=== PATIENT | male | born 1965 | race Caucasian/White ===

== ENCOUNTER 2017-01-10 17:45 | Emergency (ER) | payer BC ==
--- NOTE | 2017-01-10 19:44 | ER Document Report ---
ED Skin Rash/Insect Bite/Abscs - General Chief Complaint: Skin Problem Stated Complaint: CALF PAIN Time Seen by Provider: 01/10/17 18:21 Mode of Arrival: Ambulatory Information source: Patient Notes: A 51-year-old male presents to ED for red warm back of right calf for 1-2 weeks. He states he went to his primary doctor today and she was going to do an ultrasound instead sent her to the emergency room. He states that he took one bare aspirin 325 last night and one this morning. 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 He has a past history of rheumatic fever ADHD and a clavicle fracture. - HPI Patient complains to provider of: Other - Red tender right calf for 1-2 weeks Onset: Other - 1-2 weeks Onset/Duration: Gradual Quality of pain: Burning Severity: Mild Pain Level: 1 Skin Character: Other - Red swollen tender Skin Temperature: Warm Quality of rash: Painful Identify cause: No Exacerbated by: Movement, Walking Relieved by: Denies Similar symptoms previously: No Recently seen / treated by doctor: Yes - Related Data Allergies/Adverse Reactions: No Known Allergies Allergy (Unverified 01/10/17 17:51) Home Medications: Current Home Medications No Home Medications 01/10/17 [History] Past Medical History - General Information source: Patient - Social History Smoking Status: Never Smoker Cigarette use (# per day): No Chew tobacco use (# tins/day): No Smoking Education Provided: No Frequency of alcohol use: Social - 6 beers a week Drug Abuse: None Occupation: intermodal owner operator truck driver Lives with: Family Family History: Reviewed & Not Pertinent Patient has suicidal ideation: No Patient has homicidal ideation: No - Past Medical History Cardiac Medical History: Reports: None Pulmonary Medical History: Reports: None EENT Medical History: Reports: None Neurological Medical History: Reports: None Endocrine Medical History: Reports: None Renal/ Medical History: Reports: None Malignancy Medical History: Reports None GI Medical History: Reports: None Musculoskeltal Medical History: Reports Hx Musculoskeletal Trauma Skin Medical History: Reports None Psychiatric Medical History: Reports: Hx Attention Deficit Hyperactivity Disorder Traumatic Medical History: Reports: Hx Fractures - Clavicle Infectious Medical History: Reports: None Past Surgical History: Reports: Hx Oral Surgery Review of Systems - Review of Systems Constitutional: No symptoms reported EENT: No symptoms reported Cardiovascular: No symptoms reported Respiratory: No symptoms reported Gastrointestinal: No symptoms reported Genitourinary: No symptoms reported Male Genitourinary: No symptoms reported Musculoskeletal: Other - Red swollen right calf for 1-2 weeks Skin: Change in color Hematologic/Lymphatic: No symptoms reported Neurological/Psychological: No symptoms reported -: Yes All other systems reviewed and negative Physical Exam - Vital signs Vitals: Temp Pulse Resp BP Pulse Ox 97.5 F 72 22 H 133/85 H 97 01/10/17 17:49 01/10/17 17:49 01/10/17 17:49 01/10/17 17:49 01/10/17 17:49 Interpretation: Normal - General General appearance: Appears well, Alert - HEENT Head: Normocephalic, Atraumatic Eyes: Normal Pupils: PERRL - Respiratory Respiratory status: No respiratory distress Chest status: Nontender Breath sounds: Normal Chest palpation: Normal - Cardiovascular Rhythm: Regular Heart sounds: Normal auscultation Murmur: No - Abdominal Inspection: Normal Distension: No distension Bowel sounds: Normal Tenderness: Nontender Organomegaly: No organomegaly - Back Back: Normal, Nontender - Extremities General upper extremity: Normal inspection, Nontender, Normal color, Normal ROM , Normal temperature General lower extremity: Normal ROM, Normal weight bearing. No: Piero's sign Calf: Tender, Other - Erythema mild swelling right calf multiple varicose veins both legs Ankle: Normal, Nontender Foot: Normal, Nontender - Neurological Neuro grossly intact: Yes Cognition: Normal Orientation: AAOx4 [place] Coma Scale Eye Opening: Spontaneous [place] Coma Scale Verbal: Oriented [place] Coma Scale Motor: Obeys Commands [place] Coma Scale Total: 15 Speech: Normal Motor strength normal: LUE, RUE, LLE, RLE Sensory: Normal - Psychological Associated symptoms: Normal affect, Normal mood - Skin Skin Temperature: Warm Skin Moisture: Dry Skin Color: Normal Course - Re-evaluation Re-evalutation: 01/10/17 21:47 Discussed labs physical history and ultrasound with Dr. Mcdonald and patient. Written report given to patient to follow-up with his primary doctor. Patient has multiple superficial thrombophlebitis in the right calf. Patient was instructed to take aspirin daily he has taken one today and yesterday. He was also instructed on elevation and warm packs to the calf muscle. He was also instructed to follow-up with his primary doctor tomorrow. Written instructions given to patient on precautions with thrombophlebitis and when to return to the hospital. Up to date instructions printed and given to patient for thrombophlebitis. - Vital Signs Vital signs: Temp Pulse Resp BP Pulse Ox 97.5 F 72 22 H 133/85 H 97 01/10/17 17:49 01/10/17 17:49 01/10/17 17:49 01/10/17 17:49 01/10/17 17:49 - Laboratory Result Diagrams: 01/10/17 19:47 01/10/17 19:47 Laboratory results interpreted by me: 01/10/17 19:47 BUN 24 H Total Bilirubin 1.4 H - Diagnostic Test Radiology reviewed: Image reviewed, Reports reviewed Discharge - Discharge Clinical Impression: Thrombophlebitis of leg, right, superficial Condition: Stable Disposition: HOME, SELF-CARE Additional Instructions: Up to date instructions for thrombophlebitis What is superficial vein phlebitis/thrombosis? "Superficial vein phlebitis" and "superficial vein thrombosis" are medical terms for problems with the veins that are close to the surface of the skin (called the superficial veins): ?Superficial vein phlebitis is when the veins get inflamed. ?Superficial vein thrombosis is when blood clots form in the veins. If both problems happen, it is called "superficial vein thrombophlebitis." Superficial vein phlebitis/thrombosis is related to another vein problem called "deep vein thrombosis" or "DVT." DVT is when a vein located deep between the muscles gets inflamed or becomes clotted. DVT can be very dangerous because clots within a deep vein can break off and travel to the lungs, causing something called a "pulmonary embolism." Again, superficial vein phlebitis/thrombosis affects veins near the surface of the skin. DVT affects veins deep in the muscle. Is superficial vein phlebitis/thrombosis dangerous? Superficial vein phlebitis is not usually dangerous. But with superficial vein thrombosis, clots in a superficial vein can extend into a deep vein causing DVT, or break off, causing pulmonary embolism. For these reasons, superficial vein thrombosis is taken very seriously, especially when it affects the thigh or upper arm, where superficial and deep veins meet. How does superficial vein phlebitis/thrombosis relate to other vein problems? People who get superficial vein phlebitis/thrombosis often also have a type of vein disease called "venous insufficiency." Venous insufficiency can occur with or without varicose veins (twisted, swollen veins), and most often affects the legs. When the veins are healthy and working normally, they carry blood in only 1 direction, from the arms and legs back to the heart. Veins have valves inside them to keep blood moving toward the heart. The valves open to let blood flow to the heart, and close to keep blood from flowing backwards. When the valves are damaged or do not work well, blood flows backward and collects in the veins. This is called venous insufficiency. People without venous insufficiency can also get superficial vein phlebitis/ thrombosis. This usually happens after having an intravenous catheter, which is a tube that goes into a vein to give medicines. But even people who had nothing put into a vein can get superficial vein phlebitis/thrombosis. For instance, it can happen to people with blood clotting problems or cancer. What are the symptoms of superficial vein phlebitis/thrombosis? The symptoms include: ?Pain, tenderness, or redness along the length of a vein ?Hardening of the vein ?Fever ?Fluid draining from the area where a catheter was put in ?Swelling of the affected arm or leg Should I see a doctor or nurse? Yes, if you have symptoms of superficial vein phlebitis/thrombosis, see your doctor or nurse. See him or her right away if the affected arm or leg is swollen, or if the affected vein is in the thigh or upper arm. Call for an ambulance (in the [place] and [place], dial [id number]) if you get symptoms of a blood clot in the lungs, such as: ?Panting or trouble breathing ?Sharp, knife-like chest pain when you breathe in ?Coughing or coughing up blood ?A rapid heartbeat Will I need tests? Maybe. Your doctor or nurse might be able to tell what is happening by doing an exam and learning about your symptoms. He or she might also do a test called an ultrasound. An ultrasound will show if any of the veins are blocked, especially the deep veins. It can also check how well the valves in the veins work. In some cases, your doctor might order blood tests. How is superficial vein phlebitis/thrombosis treated? The treatment for superficial vein phlebitis/thrombosis focuses on easing the symptoms. To do this , doctors recommend that you: ?Use heating or cooling pads on the affected area ?Raise the arm or leg, propping it up on pillows or a chair when resting ?Take a medicine called an NSAID Examples include ibuprofen (sample brand names: Advil, Motrin) and naproxen (sample brand names: Aleve, Naprosyn) If your superficial vein phlebitis/thrombosis is near where you have (or had) an intravenous catheter, your doctor will check for infection. If you do have an infection, you might need antibiotics. If superficial vein phlebitis/thrombosis is in your leg, your doctor or nurse might also suggest you wear compression stockings. These are special socks that fit tightly over the ankle and leg. If your doctor or nurse recommends them, he or she will tell you which type to wear and how to put them on. Some people do not need treatment beyond that described above. In some cases where superficial vein thrombosis is near the deep veins, though, your doctors will prescribe a medicine to prevent more clots from forming. Can superficial vein phlebitis/thrombosis be prevented? You can reduce your chances of getting superficial vein phlebitis/thrombosis in the leg veins by staying active and not sitting too long without moving. Take 325 mg of aspirin daily Elevation & Warmth The area should be elevated as much as possible over the next 48 hours. Try to keep it above the level of your heart. Apply gentle heat (such as a heating pad or hot water bottle) for about 20 to 30 minutes about every two hours -- at least four times daily. Warmth and elevation will help you make a more rapid recovery, and will ease the pain considerably. FOLLOW-UP CARE: If you have been referred to a physician for follow-up care, call the physician s office for an appointment as you were instructed or within the next two days. If you experience worsening or a significant change in your symptoms, notify the physician immediately or return to the Emergency Department at any time for re-evaluation. Forms: Elevated Blood Pressure, Return to Work Referrals: MARY MARQUEZ PA-C [Primary Care Provider] - Follow up tomorrow
[2017-01-10 20:23] LABS: ABSOLUTE EOSINOPHILS # (AUTO) 0.3 10^3/uL (0.0-0.6); ABSOLUTE MONOCYTES (AUTO) 0.7 10^3/uL (0.1-1.4); ABSOLUTE NEUT (AUTO) 3.5 10^3/uL (1.7-8.2); BASOPHILS % (AUTO) 0.7 % (0-2); EOSINOPHILS % (AUTO) 4.8 % (0-6); HEMATOCRIT 42.6 % (37.9-51.0); HEMOGLOBIN 14.8 g/dL (13.5-17.0); HGB HCT DIFFERENCE 1.8; LYMPHOCYTES % (AUTO) 30.8 % (13-45); MEAN CORPUSCULAR HEMOGLOBIN 30.5 pg (27.0-33.4); MEAN CORPUSCULAR HGB CONC 34.7 g/dL (32.0-36.0); MEAN CORPUSCULAR VOLUME 88 fl (80-97); MONOCYTES % (AUTO) 11.1 % (3-13); RED BLOOD COUNT 4.85 10^6/uL (4.35-5.55); RED CELL DISTRIBUTION WIDTH 13.9 % (11.5-14.0); SEGMENTED NEUTROPHILS % (AUTO) 52.6 % (42-78); WHITE BLOOD COUNT 6.6 10^3/uL (4.0-10.5)
[2017-01-10 20:28] LABS: PARTIAL THROMBOPLASTIN TIME 33.4 SEC (23.5-35.8)
[2017-01-10 20:30] LABS: PROTHROMBIN TIME 13.3 SEC (11.4-15.4)
[2017-01-10 20:56] LABS: ALANINE AMINOTRANSFERASE 53 U/L (21-72); ALBUMIN 4.4 g/dL (3.5-5.0); ALKALINE PHOSPHATASE 59 U/L (38-126); ANION GAP 11 (5-19); ASPARTATE AMINO TRANSFERASE 40 U/L (17-59); BILIRUBIN,DIRECT 0.4 mg/dL (0.0-0.4); BILIRUBIN,TOTAL 1.4 mg/dL (0.2-1.3); BLOOD UREA NITROGEN 24 mg/dL (7-20); CALCIUM 9.4 mg/dL (8.4-10.2); CARBON DIOXIDE 27 mmol/L (22-30); CHLORIDE 106 mmol/L (98-107); CREATININE RESULT 1.07 mg/dL (0.52-1.25); GLUCOSE 88 mg/dL (75-110); POTASSIUM 4.8 mmol/L (3.6-5.0); SODIUM 144.3 mmol/L (137-145); TOTAL PROTEIN 7.6 g/dL (6.3-8.2)
--- NOTE | 2017-01-10 21:24 | RADIOLOGY REPORT (SQ) ---
EXAM DESCRIPTION: U/S EXTREMITY NONVASCULAR LTD COMPLETED DATE/TIME: 01/10/2017 9:09 pm REASON FOR STUDY: right calf erythema swelling and pain COMPARISON: None. TECHNIQUE: Dynamic and static grayscale images acquired of the localized site of clinical concern an d recorded on PACS. Additional selected color Doppler and spectral images recorded. SITE OF CONCERN: Right calf. LIMITATIONS: None. FINDINGS: SKIN AND SUBCUTANEOUS TISSUES: No masses. No fluid collections. No edema. No foreign carmina s. DEEP SOFT TISSUES/MUSCLES: No masses. No fluid collections. No edema. VASCULAR: Distended serpiginous superficial varicosity with extensive thrombosis. OTHER: No other significant finding. IMPRESSION: DISTENDED THROMBOSED SUPERFICIAL VENOUS VARICOSITY. TECHNICAL DOCUMENTATION: JOB ID: [id number] [employer]- All Rights Reserved
[2017-01-10 21:52] VITALS: BP 127/89
--- NOTE | 2017-01-11 11:40 | XCELERA REPORT ---
[address] [address] Lower Extremity Venous Evaluation Name: LEIF RODRIGUEZ Age: 51 yrs Gender: Male : 1965 Patient Status: Emergency Patient Location: ER Study Date: 01/10/2017 07:17 PM Procedure: Color flow and duplex imaging of the veins of the right lower extremity as well as the left Common Femoral vein. Reason For Study: right calf pain Ordering Physician: JESUS SWARTZ Performed By: Della Campuzano Right Sided Venous Evaluation Large subcutaneous varicosities, which seem paten seen in the calf area of concern.. Normal vessel filling wall to wall, compression and augmentation as well as Colour flow down to the infrageniculate veins. Left Sided Venous Evaluation The left common femoral vein is fully compressible. Spontaneous and phasic flow is present in the left common femoral vein. Interpretation Summary No duplex evidence of DVT or obstruction in the right lower extremity nor in the left Common Femoral vein. Large varicosities seen in the area of concern. : JESUS SWARTZ > Harinder Poon
== END 2017-01-10 21:52 | disposition home or self-care (01) ==
LOC: ER 17:45
DX: I80.01 Phlebitis and thrombophlebitis of superficial vessels of right lower extremity (principal); M79.661 Pain in right lower leg
CPT/HCPCS: 36415; 76882; 80053; 85025; 85610; 85730; 93971; 99283